=== PATIENT | male | born 1965 | race Caucasian/White ===

== ENCOUNTER 2016-07-12 09:07 | Emergency (ER) | payer OTHER ==
[~2016-07-12 09:07] MED LIST: ALBUTEROL MININEB INH; COMBIVENT INH14.7 GM; LEVAQUIN750 M1 PO; NO MEDICATIONS; PREDNISONE; PREDNISONE PO; PROAIR HFA8.5 GM INH; ZITHROMAX
== END 2016-07-12 09:45 | disposition home or self-care (01) ==
LOC: SED 09:07
DX: S05.02XA Injury of conjunctiva and corneal abrasion without foreign body, left eye, initial encounter (principal); H20.00 Unspecified acute and subacute iridocyclitis; J45.909 Unspecified asthma, uncomplicated; F17.210 Nicotine dependence, cigarettes, uncomplicated; Z88.1 Allergy status to other antibiotic agents; Z88.8 Allergy status to other drugs, medicaments and biological substances; X58.XXXA Exposure to other specified factors, initial encounter; Y92.9 Unspecified place or not applicable
CPT/HCPCS: 99283